=== PATIENT | female | born 1950 | race Caucasian/White ===

== ENCOUNTER → 2017-10-06 | Day surgery (SDC) | payer OTHER, MEDICARE ==
[2017-09-30 07:11] VITALS: Ht 165.1 cm; Wt 58.2 kg
[~2017-10-06] VITALS: Ht 165.1 cm; Wt 58.2 kg
[~2017-10-06] MED LIST: 500ML BSS 0.3ML EPI 1:1000PF IRRIG ONE; ACETAMINOPHEN 325 MG TAB PO PRN; AMVISC PLUS 0.8ML SYRINGE INT OCU ONE; ATROPINE SULFATE 0.1 MG/ML 5ML SYR IV PRN; AcetaZOLAMIDE 250 MG TAB PO SCH; BETAXOLOL HCL 0.25% OP SUSP PER DROP CHARGE OPR SCH; BRIMONIDINE TART 0.2% OP SOLN PER DROP CHARGE ONE; BSS FLUSH ONE; CALC600T9 PO; CHOL200010 PO; CLIN300C2 PO; ENDOCOAT 0.85ML SYRINGE INT OCU ONE; EpHEDrine SULFATE INJ 50 MG/ML AMP IV PRN; EpINEphrine INJ 1MG/ML AMP 1 MG/ML AMP ONE; LACTATED RINGER'S 1000ML 500 ML IV SCH; LIDOCAINE 4% OP SOLN DROP CHARGE ONE; LIDOCAINE 4% OP SOLN DROP CHARGE OPR SCH; LIDOCAINE HCL 1% MPF 2 ML VIAL ONE; MIDAZOLAM HCL 1 MG/ML 2ML VIAL ONE; MIX: 4ML BSS 1ML EPI 1:1000 PF INSTIL ONE; MOXIFLOXACIN OPH SOLN PER DROP CHARGE ONE; MULT-506 PO; POVIDONE-IODINE OP SOLN 30 ML BTL ONE; PRED-301 PO; PROPARACAINE 0.5% OP SOLN PER DROP CHARGE OPR SCH; TOBRAMYCIN/DEXAMETHASONE OPH OINT PER APPLN CHARGE ONE
--- NOTE | 2017-10-06 07:07 | History & Physical Bridge - [place] ---
H&P Re-Evaluation Bridge Note: I have examined the patient, reviewed the History & Physical and in the interval since the performance of the History & Physical I have noted the following changes of clinical significance: No changes noted
[2017-10-06] MEDS: PHENYLEPHRINE HCL 2.5% OP SOLN PER DROP CHARGE OPR SCH ×2 (07:43→07:48)
[2017-10-06] MEDS: TROPICAMIDE 1% OP SOLN PER DROP CHARGE OPR SCH ×2 (07:44→07:49)
[2017-10-06] MEDS: CYCLOPENTOLATE HCL 1% OP SOLN PER DROP CHARGE OPR SCH ×2 (07:45→07:50)
[2017-10-06] MEDS: MOXIFLOXACIN OPH SOLN PER DROP CHARGE OPR SCH ×2 (07:46→07:56)
--- NOTE | 2017-10-06 08:22 | [facility] Operative Report ---
Operative Report Date of Service October 06, 2017. Operative Report 1. PREOPERATIVE DIAGNOSIS: Senile Posterior Subcapsular Cataract, right eye. 2. POSTOPERATIVE DIAGNOSIS: Senile Posterior Subcapsular Cataract, right eye. 3. PROCEDURE: Phacoemulsification of right cataract with posterior chamber lens implant, type Bausch [employer] Lomb, model MI60L, power +23.5 diopters. ANESTHESIA: Local standby. SURGEON: Dr. Carlos. COMPLICATIONS: None. OPERATING TIME: 10 minutes. 4. OPERATION AND FINDINGS: DESCRIPTION OF PROCEDURE: The right pupil was dilated. The anesthetic was administered using a topical technique. The right eye was prepped and draped. A speculum was placed. A clear corneal incision was formed. The chamber was filled with Amvisc Plus and Endocoat. Epinephrine solution was used. A paracentesis was placed. A capsulorrhexis was performed. The nucleus was hydrodissected. The lens was removed with phacoemulsification. Time was 2.73 seconds. The aspiration unit was used to remove the cortex. The capsule was filled with Amvisc Plus. The lens implant was folded and placed into the capsule. A second astigmatic incision was placed at the limbus directly across from the main incision. The incisions were hydrated. The Amvisc was aspirated. The wound was secure. The chamber was deep. The pupil was round. Brimonidine, TobraDex ointment and Vigamox solution were placed. The speculum was removed. The patient was returned to the Recovery Room in stable condition. I attest to the content of the Intraoperative Record and any orders documented therein. Any exceptions are noted below. I personally scribed for Orion Carlos M.D. ([email or web address]) on 10/06/17 at 08:22. Electronically submitted by Aurora Baxter ([email or web address]).
--- NOTE | 2017-10-06 08:23 | Discharge Instructions-SurgCtr ---
Discharge Instructions Date of Service October 06, 2017. Visit Reason for Visit: Cataract Right Eye Discharge Discharge Diagnosis / Problem: lens implant right eye Discharge Goals Goal(s): Improve function Activity Recommendations Activity Limitations: resume your previous activity Lifting Limitations: no more than 10 pounds Exercise/Sports Limitations: gradually increase as tolerated May Resume Sexual Activity: when tolerated Shower/Bathe: tomorrow Driving or Machine Use: resume 1 day after discharge Anesthesia . Post Anesthesia Instructions: If you have had General Anesthesia or IV Sedation: * Do not drive today. * Resume driving when surgeon permits. * Do not make important decisions or sign legal documents today. * Call surgeon for: 1. Temperature elevations greater than 101 degrees F. 2. Uncontrollable pain. 3. Excessive bleeding. 4. Persistent nausea and vomiting. 5. Medication intolerance (nausea, vomiting or rash). * For nausea and vomiting use only clear liquids such as: tea, soda, bouillon until nausea subsides, then gradually increase diet as tolerated. * If you have any concerns or questions, call your surgeon's office. If physician is unavailable and it is an emergency, call 911 or go to the nearest emergency room. . Instructions / Follow-Up Instructions / Follow-Up ACTIVITY RECOMMENDATIONS: * Light activities. * Mild irritation and blurred vision are common for the first few days. * You may walk outside, read, watch television. * Redness around the white part of the eye is common. MEDICATIONS: Resume previous medications unless instructed otherwise by your surgeon. * Take white Diamox (Acetazolamide) tablet at 1 pm today. Start all eye drops at 1 pm today: * Eye drops (today and tomorrow): Prednisone - one drop in operative eye every 3 hours while awake Ofloxacin - one drop in operative eye every 3 hours while awake SPECIAL CARE INSTRUCTIONS: * Tape plastic shield over eye to sleep at night. Call your doctor at with any concerns or problems. FOLLOW UP VISIT: Follow-up with Dr Carlos at [facility] as scheduled. Diet Recommendations Home Diet: no limitations Procedures Procedures Performed: Right Cataract Phacoemulsification With Intraocular Lens Implant Pending Studies Studies pending at discharge: no Medical Emergencies . Who to Call and When: Medical Emergencies: If at any time you feel your situation is an emergency, please call 911 immediately. . Non-Emergent Contact Non-Emergency issues call your: Chief Lock Operator Call Non-Emergent contact if: your pain is not controlled [phone] . . "Provider Documentation" section prepared by Orion Carlos. .
[2017-10-06 08:31] VITALS: TEMP 36
[2017-10-06 08:52] VITALS: BP 145/85; PULSE 58; O2SAT 96
--- NOTE | 2017-10-06 09:04 | Anesthesia Progress Nt - [facility] ---
Anesthesia Post Op Note Date & Time October 06, 2017 at 09:04 Vital Signs Pain Intensity: 0 Vital Signs Past 12 Hours Date Time Temp Pulse Resp B/P (MAP) Pulse Ox O2 Delivery O2 Flow Rate FiO2 10/06/17 08:52 58 18 145/85 (105) 96 Room Air 10/06/17 08:31 36.0 51 18 137/78 (97) 97 Room Air 10/06/17 07:27 36.4 56 16 131/77 (95) 97 Room Air Notes Mental Status: alert / awake / arousable, participated in evaluation Pt Amnestic to Procedure: Yes Nausea / Vomiting: adequately controlled Pain: adequately controlled Airway Patency, RR, SpO2: stable & adequate BP & HR: stable & adequate Hydration State: stable & adequate Anesthetic Complications: no major complications apparent
== END | disposition home or self-care (01) ==
LOC: X.SURG 07:11
PROVIDERS: ATTEND Specialist
DX: H26.8 Other specified cataract (principal); Z88.0 Allergy status to penicillin; M19.90 Unspecified osteoarthritis, unspecified site; F17.200 Nicotine dependence, unspecified, uncomplicated

== ENCOUNTER → 2017-10-20 | Day surgery (SDC) | payer OTHER, MEDICARE ==
[2017-10-18 09:42] VITALS: Ht 165.1 cm; Wt 58.2 kg
[~2017-10-20] VITALS: Ht 165.1 cm; Wt 58.2 kg
[~2017-10-20] MED LIST changes: +BETAXOLOL HCL 0.25% OP SUSP PER DROP CHARGE OPL SCH; -BETAXOLOL HCL 0.25% OP SUSP PER DROP CHARGE OPR SCH; +LIDOCAINE 4% OP SOLN DROP CHARGE OPL SCH; -LIDOCAINE 4% OP SOLN DROP CHARGE OPR SCH; +PROPARACAINE 0.5% OP SOLN PER DROP CHARGE OPL SCH; -PROPARACAINE 0.5% OP SOLN PER DROP CHARGE OPR SCH
[2017-10-20] MEDS: PHENYLEPHRINE HCL 2.5% OP SOLN PER DROP CHARGE OPL SCH ×2 (09:06→09:11)
[2017-10-20] MEDS: TROPICAMIDE 1% OP SOLN PER DROP CHARGE OPL SCH ×2 (09:07→09:12)
[2017-10-20] MEDS: CYCLOPENTOLATE HCL 1% OP SOLN PER DROP CHARGE OPL SCH ×2 (09:08→09:13)
[2017-10-20] MEDS: MOXIFLOXACIN OPH SOLN PER DROP CHARGE OPL SCH ×2 (09:09→09:19)
--- NOTE | 2017-10-20 09:59 | [facility] Operative Report ---
Operative Report Date of Service October 20, 2017. Operative Report 1. PREOPERATIVE DIAGNOSIS: Senile Posterior Subcapsular Cataract, left eye. 2. POSTOPERATIVE DIAGNOSIS: Senile Posterior Subcapsular Cataract, left eye. 3. PROCEDURE: Phacoemulsification of left cataract with posterior chamber lens implant, type Bausch [employer] Lomb, model MI60L, power +23.5 diopters. ANESTHESIA: Local standby. SURGEON: Dr. Carlos. COMPLICATIONS: None. OPERATING TIME: 10 minutes. 4. OPERATION AND FINDINGS: DESCRIPTION OF PROCEDURE: The left pupil was dilated. The anesthetic was administered using a topical technique. The left eye was prepped and draped. A speculum was placed. A clear corneal incision was formed. The chamber was filled with Amvisc Plus and Endocoat. Epinephrine solution was used. A paracentesis was placed. A capsulorrhexis was performed. The nucleus was hydrodissected. The lens was removed with phacoemulsification. Time was 1.62 seconds. The aspiration unit was used to remove the cortex. The capsule was filled with Amvisc Plus. The lens implant was folded and placed into the capsule. The incision was hydrated. The Amvisc was aspirated. The wound was secure. The chamber was deep. The pupil was round. Brimonidine, TobraDex ointment and Vigamox solution were placed. The speculum was removed. The patient was returned to the Recovery Room in stable condition. I attest to the content of the Intraoperative Record and any orders documented therein. Any exceptions are noted below. The scribe's documentation has been prepared in my presence, under my direction and personally reviewed by me in its entirety. I confirm that the note above accurately reflects all work, treatment, procedures, and medical decision making performed by me. I personally scribed for Orion Carlos M.D. ([email or web address]) on 10/20/17 at 09:59. Electronically submitted by Aurora NELSON).
--- NOTE | 2017-10-20 10:00 | Discharge Instructions-SurgCtr ---
Discharge Instructions Date of Service October 20, 2017. Visit Reason for Visit: Cataract Left Eye Discharge Discharge Diagnosis / Problem: lens implant left eye Discharge Goals Goal(s): Improve function Activity Recommendations Activity Limitations: resume your previous activity Lifting Limitations: no more than 10 pounds Exercise/Sports Limitations: gradually increase as tolerated May Resume Sexual Activity: when tolerated Shower/Bathe: tomorrow Driving or Machine Use: resume 1 day after discharge Anesthesia . Post Anesthesia Instructions: If you have had General Anesthesia or IV Sedation: * Do not drive today. * Resume driving when surgeon permits. * Do not make important decisions or sign legal documents today. * Call surgeon for: 1. Temperature elevations greater than 101 degrees F. 2. Uncontrollable pain. 3. Excessive bleeding. 4. Persistent nausea and vomiting. 5. Medication intolerance (nausea, vomiting or rash). * For nausea and vomiting use only clear liquids such as: tea, soda, bouillon until nausea subsides, then gradually increase diet as tolerated. * If you have any concerns or questions, call your surgeon's office. If physician is unavailable and it is an emergency, call 911 or go to the nearest emergency room. . Instructions / Follow-Up Instructions / Follow-Up ACTIVITY RECOMMENDATIONS: * Light activities. * Mild irritation and blurred vision are common for the first few days. * You may walk outside, read, watch television. * Redness around the white part of the eye is common. MEDICATIONS: Resume previous medications unless instructed otherwise by your surgeon. * Take white Diamox (Acetazolamide) tablet at 1 pm today. Start all eye drops at 1 pm today: * Eye drops (today and tomorrow): Durezol - one drop in operative eye every 3 hours while awake Ofloxacin - one drop in operative eye every 3 hours while awake SPECIAL CARE INSTRUCTIONS: * Tape plastic shield over eye to sleep at night. Call your doctor at with any concerns or problems. FOLLOW UP VISIT: Follow-up with Dr Carlos at [place] office as scheduled. Diet Recommendations Home Diet: no limitations Procedures Procedures Performed: Left Cataract Phacoemulsification With Intraocular Lens Implant Pending Studies Studies pending at discharge: no Medical Emergencies . Who to Call and When: Medical Emergencies: If at any time you feel your situation is an emergency, please call 911 immediately. . Non-Emergent Contact Non-Emergency issues call your: Social Media Intern Call Non-Emergent contact if: your pain is not controlled [phone] . . "Provider Documentation" section prepared by Orion Carlos. .
[2017-10-20 10:03] VITALS: TEMP 37
--- NOTE | 2017-10-20 10:28 | Anesthesiology Progress Note ---
Anesthesia Post Op Note Date & Time October 20, 2017 at 10:28 Vital Signs Pain Intensity: 0 Vital Signs Past 12 Hours Date Time Temp Pulse Resp B/P (MAP) Pulse Ox O2 Delivery O2 Flow Rate FiO2 10/20/17 10:03 37 60 16 134/71 (92) 95 Room Air 10/20/17 08:52 36.6 54 18 129/77 (94) 97 Room Air Notes Mental Status: alert / awake / arousable, participated in evaluation Nausea / Vomiting: adequately controlled Pain: adequately controlled Airway Patency, RR, SpO2: stable & adequate BP & HR: stable & adequate Hydration State: stable & adequate Anesthetic Complications: no major complications apparent
[2017-10-20 10:36] VITALS: BP 157/70; PULSE 58; O2SAT 96
== END | disposition home or self-care (01) ==
LOC: X.SURG 08:18
PROVIDERS: ATTEND Specialist
DX: H25.042 Posterior subcapsular polar age-related cataract, left eye (principal); I51.9 Heart disease, unspecified; F17.200 Nicotine dependence, unspecified, uncomplicated; Z88.0 Allergy status to penicillin

== ENCOUNTER 2018-12-07 09:09 | Inpatient (IN) ==
--- NOTE | 2018-11-22 08:49 | PAT Medication Instructions ---
Medication Instructions Date of Service November 22, 2018 Home Medications Ca-D3-mag ek-ozvl-jmq-martha-bor [Calcium 600-D3 Plus] 1 tab PO QAM cholecalciferol (vitamin D3) [Vitamin D3] 2,000 unit PO QAM clindamycin HCl 600 mg PO DIRECTED PRN multivitamin 1 tab PO QAM prednisone 1 mg PO QAM Continue as directed clindamycin HCl 600 mg PO DIRECTED PRN (if needed) prednisone 1 mg PO QAM DO NOT take the morning of surgery Ca-D3-mag ru-tqfc-xva-martha-bor [Calcium 600-D3 Plus] 1 tab PO QAM cholecalciferol (vitamin D3) [Vitamin D3] 2,000 unit PO QAM multivitamin 1 tab PO QAM Other Notes If you have any questions please call us at [phone] or [phone] or [phone] or [phone]
--- NOTE | 2018-11-22 11:15 | Anesthesiology Consultation ---
Date of Service November 22, 2018 Assessment & Plan (1) Encounter for pre-operative examination: - PCP: 11/24/18: EKG noting U-waves reviewed-- recommendation for patient to be further evaluated by cardio regarding this (nothing further recommended from their perspective). Patient is medically cleared pending cardiology evaluation, and cortisol am." Cortisol level done 11/26/18 WNL. Cardio preop evaluation done 11/30/18. - Cardio: 11/30/18: "acceptable risk to proceed with upcoming surgery without any additional CV testing or intervention." Preop EKG noting u-waves reviewed (nothing further recommended from their perspective). Chart Review Chart Review: Acceptable Risk for Surgery and Patient seen in Pre Admission Testing Teaching & Discussion Pre-Anesthesia Teaching/Discussion Notes: Instructed NPO after midnight before surgery,except medications with 15 cc of water. Medication instructions provided according to the PAT guidelines. History Surgery Operation Date: 12/07/18 11:55 Proposed Procedures p Left Reverse Total Shoulder Arthroplasty - Rigoberto Mtz MD Height/Weight Height: 5 ft 4 in Weight: 51 kg Allergies Allergy/AdvReac Type Severity Reaction Status Date / Time Penicillins Allergy Unknown A CHILD Verified 11/14/18 11:12 Medications Home Medications Medication Instructions Recorded Confirmed Last Taken Ca-D3-mag ey-zevn-mqa-martha-bor 1 tab PO QAM 11/14/18 11/14/18 Unknown [Calcium 600-D3 Plus] cholecalciferol (vitamin D3) 2,000 unit PO QAM 11/14/18 11/14/18 Unknown [Vitamin D3] clindamycin HCl 600 mg PO DIRECTED PRN 11/14/18 11/14/18 Unknown multivitamin 1 tab PO QAM 11/14/18 11/14/18 Unknown prednisone 1 mg PO QAM 11/14/18 11/14/18 Unknown Past Medical History Medical History Temporal arteritis 8 YEARS AGO; PATIENT STATES ESR LEVEL INCREASES EVERY TIME THEY TRY TO TAPER OFF PREDNISONE SO ASSISTED PREDISONE 5MG DAILY Exercise / Class Metabolic Activity II 4-5 Yardwork/Stairs/Walk up hill Past Surgical History Surgical History History of tonsillectomy and adenoidectomy Hx of cataract extraction RIGHT/LEFT Hx of section X2 Hx of eye surgery RIGHT/LEFT EYE MUSCLE/EYELID SURGERY Status post ectopic X2 Past Anesthesia History No Hx of Anesthesia Complications and No Family Hx of Anesthesia Complications History of PONV No Hx of PONV and No Hx of Motion Sickness Social History Smoking Status: Former smoker Do You Dip or Chew Tobacco: No Smoking End Date: QUIT 2015 Hx Alcohol Use: Yes alcohol intake frequency: holidays/special occasions only Hx Substance Use: No Review of Systems Patient denies chest pain, shortness of breath, dyspnea on exertion, cough, wheezing, palpitations. Physical Exam Vital Signs VITALS BP 160/80; manual recheck on right: 122/76 (typically 120-140 range systolic; patient anxious/in pain at PAT visit) P 59 TEMP 98.7 SP02 95%RA RESP 18 PHYSICAL Full neck and c-spine range of motion. Full TMJ range of motion. TMD 3 finger breaths Mallampati Score 1 Dentition: fixed bridge upper front, missing molar Lungs: clear throughout to auscultation Cardiac: regular rate and rhythm, no murmurs noted Spine: normal Carotid arteries: negative bruit Extremities: no edema Testing Laboratory Results 11/22/18 11:44 11/22/18 12:21 PT 9.9 Seconds (9.0-12.0) 11/22/18 11:44 INR 1.0 (0.9-1.1) 11/22/18 11:44 APTT 26.5 Seconds (21.0-31.0) 11/22/18 11:44 Hemoglobin A1c 5.5 % (4.5-5.6) 11/22/18 11:44 Urine Color Dark Yellow 11/22/18 11:44 Urine Appearance Clear (Clear) 11/22/18 11:44 Urine pH 6.0 (4.5-7.5) 11/22/18 11:44 Ur Specific Dexter 1.023 (1.000-1.030) 11/22/18 11:44 Urine Protein Negative (Negative) 11/22/18 11:44 Urine Glucose (UA) Negative (Negative) 11/22/18 11:44 Urine Ketones Trace (Negative) H 11/22/18 11:44 Urine Nitrite Negative (Negative) 11/22/18 11:44 Ur Leukocyte Esterase Trace (Negative) H 11/22/18 11:44 Urine WBC (Auto) 1-5 /hpf (0-5) 11/22/18 11:44 Urine RBC (Auto) 5-10 /hpf (0-4) H 11/22/18 11:44 U Hyaline Cast (Auto) 5-10 /lpf (0-5) H 11/22/18 11:44 U Epithel Cells (Auto) 10-20 /lpf (0-5) H 11/22/18 11:44 Urine Bacteria (Auto) Negative (Negative) 11/22/18 11:44 Blood Type O Negative 11/22/18 11:44 Antibody Screen NEGATIVE 11/22/18 11:44 11/26/18 Cortisol: 14.6 (WNL) Electrocardiogram Date: 11/22/18 SB at 53bpm. U-waves present; r/o electrolyte imbalance. "No significant change" compared to 1993 EKG. Chest X-Ray Date: 11/22/18 Findings: + NAD Echocardiogram Date: 11/30/18 LVEF 60-64%. No RWMA. Mild AV sclerosis. Mild TR. Borderline concentric wall thickness increased.
--- NOTE | 2018-11-22 12:23 | XRay Report ---
XR chest Pre-admission PA/Lat CLINICAL HISTORY: Preoperative chest COMPARISON STUDY: No previous studies for comparison. FINDINGS: The cardiac and mediastinal contours are normal. There is no evidence of focal pulmonary co nsolidation. There is no evidence of failure. No pleural effusions are visualized.[ IMPRESSION: No active disease in the chest. Electronically signed by: Edmund Cordero M.D. 11/22/2018 12:21 PM
[2018-11-22 12:43] LABS: Basophils # (auto) 0.05 K/uL (0-0.2); Basophils % (auto) 0.5 %; Eosinophils # (auto) 0.05 K/uL (0-0.5); Eosinophils % (auto) 0.5 %; Hematocrit (blood only) 41.2 % (37-47); Hemoglobin 13.8 g/dL (12.0-16.0); Immature Granulocytes # (auto) 0.03 K/uL (0.00-0.02); Immature Granulocytes % (auto) 0.3 %; Lymphocytes # (auto) 1.39 K/uL (1.2-3.4); Lymphocytes % (auto) 14.4 %; Mean Corpuscular Hgb Conc 33.5 g/dL (32-36); Mean Corpuscular Volume 102.7 fL (80-100); Mean Platelet Volume 9.5 fL (7.4-10.4); Monocytes # (auto) 0.53 K/uL (0.11-0.59); Monocytes % (auto) 5.5 %; Neutrophils # (auto) 7.63 K/uL (1.4-6.5); Neutrophils % (auto) 78.8 %; Platelet Count 381 K/uL (130-400); RDW Coefficient of Variation 12.9 % (11.5-14.5); RDW Standard Deviation 48.4 fL (36.4-46.3); Red Blood Count 4.01 M/uL (4.2-5.4); White Blood Count 9.68 K/uL (4.8-10.8)
[2018-11-22 12:57] LABS: Estimated Average Glucose 111 mg/dl; Hemoglobin A1C 5.5 % (4.5-5.6)
[2018-11-22 12:59] LABS: Partial Thromboplastin Time 26.5 Seconds (21.0-31.0); Prothrombin Time 9.9 Seconds (9.0-12.0)
[2018-11-22 13:04] LABS: Appearance Urine Clear (Clear); Bacteria Urine Automated Negative (Negative); Bilirubin Urine Negative (Negative); Blood Urine Negative (Negative); Color Urine Dark Yellow; Glucose Urine UA Negative (Negative); Ketones Urine Trace (Negative); Leukocyte Esterase Urine Trace (Negative); Nitrite Urine Negative (Negative); Protein Urine Negative (Negative); Specific Gravity Urine 1.023 (1.000-1.030); Urobilinogen Urine Negative (Negative)
[2018-11-22 14:51] LABS: Albumin Level 3.7 gm/dl (3.4-5.0); BUN Creatinine Ratio 13.7 (10-20); Calcium 10.7 mg/dl (8.5-10.1); Creatinine Clr Calc Pharmacy 70.7 ml/min; Est GFR (African American) 108.3; Est GFR (Non-African American) 93.5; Potassium 3.7 mmol/L (3.5-5.1)
--- NOTE | 2018-12-06 17:32 | History and Physical Report ---
DATE OF ADMISSION: 12/07/2018 CHIEF COMPLAINT: Chronic left shoulder pain and weakness. HISTORY OF PRESENT ILLNESS: This is a 67-year-old female patient of Dr. Gill complaining of chronic left shoulder pain and weakness, longstanding, now progressively getting worse over the past 8 years. She has failed conservative treatment including intraarticular injections, anti-inflammatories and physical therapy. The patient has been diagnosed with a left shoulder rotator cuff arthropathy and has agreed to proceed with a left reverse total shoulder arthroplasty. PAST MEDICAL HISTORY: Anemia, osteoarthritis. SOCIAL HISTORY: Nonsmoker, occasional drinker. PAST SURGICAL HISTORY: Tonsillectomy, x2, ectopic x2, cataracts bilaterally and left blepharoplasty. REVIEW OF SYSTEMS: Chronic left shoulder pain and weakness. Otherwise, denies any shortness of breath, chest pain, nausea, vomiting or any other joint complaints. FAMILY HISTORY: Noncontributory. MEDICATIONS: Calcium 500 plus D daily, multivitamin daily, prednisone 10 mg daily, Clindamycin 150 mg daily prior to the dentist appointment due to her history of surgery. ALLERGIES: PENICILLIN. PHYSICAL EXAMINATION: GENERAL: Well-developed, well-nourished 67-year-old female patient of Dr. Gill. She is alert and oriented x3 and pleasant. HEENT: Normocephalic, atraumatic. Extraocular motions are intact. Pupils are equal and reactive to light. HEART: Regular rate and rhythm, no murmurs. LUNGS: Clear. ABDOMEN: Soft, nontender, bowel sounds present. EXTREMITIES: Left shoulder reveals full range of motion with pain and crepitation. She has 3+/5 strength globally. NEUROLOGIC: Neurovascularly, she is intact in her left upper extremity. DIAGNOSES: Left shoulder rotator cuff arthropathy and arthritis, anemia. PLAN: The patient was advised of her diagnosis. Indications, risks, benefits, postop course have all been reviewed. The patient wished to proceed with a left reversed total shoulder arthroplasty. Necessary consent forms, preoperative testing and clearances will be obtained.
[~2018-12-07 09:09] MED LIST changes: -500ML BSS 0.3ML EPI 1:1000PF IRRIG ONE; -ACETAMINOPHEN 325 MG TAB PO PRN; +ACETAMINOPHEN 500 MG TAB PO SCH; -AMVISC PLUS 0.8ML SYRINGE INT OCU ONE; -ATROPINE SULFATE 0.1 MG/ML 5ML SYR IV PRN; -AcetaZOLAMIDE 250 MG TAB PO SCH; -BETAXOLOL HCL 0.25% OP SUSP PER DROP CHARGE OPL SCH; -BRIMONIDINE TART 0.2% OP SOLN PER DROP CHARGE ONE; -BSS FLUSH ONE; -CALC600T9 PO; -CHOL200010 PO; -CLIN300C2 PO; +CeleBREX 200 MG CAP PO SCH; +DEXAMETHASONE SOD INJ 4 MG/ML VIAL ONE; -ENDOCOAT 0.85ML SYRINGE INT OCU ONE; -EpHEDrine SULFATE INJ 50 MG/ML AMP IV PRN; -EpINEphrine INJ 1MG/ML AMP 1 MG/ML AMP ONE; +FAMOTIDINE 20 MG TAB PO SCH; +GABAPENTIN 300 MG CAP PO SCH; -LACTATED RINGER'S 1000ML 500 ML IV SCH; -LIDOCAINE 4% OP SOLN DROP CHARGE ONE; -LIDOCAINE 4% OP SOLN DROP CHARGE OPL SCH; -LIDOCAINE HCL 1% MPF 2 ML VIAL ONE; +LR 15ML/HR IV SCH; +METOCLOPRAMIDE HCL 10 MG TABLET PO SCH; -MIDAZOLAM HCL 1 MG/ML 2ML VIAL ONE; -MIX: 4ML BSS 1ML EPI 1:1000 PF INSTIL ONE; -MOXIFLOXACIN OPH SOLN PER DROP CHARGE ONE; -MULT-506 PO; -POVIDONE-IODINE OP SOLN 30 ML BTL ONE; -PRED-301 PO; -PROPARACAINE 0.5% OP SOLN PER DROP CHARGE OPL SCH; +ROPIVACAINE 0.5% 5 MG/ML 30 ML VIAL ONE; -TOBRAMYCIN/DEXAMETHASONE OPH OINT PER APPLN CHARGE ONE; +dexAMETHasone 4 MG TAB PO SCH
[2018-12-07] MEDS ORDERED: ROCURONIUM BROMIDE 10 MG/ML 5 ML VIAL ONE (09:41)
[2018-12-07] MEDS ORDERED: DEXAMETHASONE SOD INJ 4 MG/ML VIAL ONE (09:41)
[2018-12-07] MEDS ORDERED: ONDANSETRON INJ 2 MG/ML 2 ML VIAL ONE (09:41)
[2018-12-07] MEDS ORDERED: PROPOFOL IV EMULSION 10 MG/ML 20 ML VIAL IV ONE (09:41)
[2018-12-07] MEDS ORDERED: fentaNYL citrate 100 MCG/2 ML VIAL ONE (09:41)
[2018-12-07] MEDS ORDERED: LIDOCAINE HCL 2% 2 ML VIAL/AMP(20MG/ML) INFIL ONE (09:41)
[2018-12-07] MEDS ORDERED: MIDAZOLAM HCL 1 MG/ML 2ML VIAL ONE (09:42)
[2018-12-07] MEDS ORDERED: KETAMINE HCL INJ 50 MG/ML 10 ML VIAL ONE (09:42)
[2018-12-07] MEDS ORDERED: VANCOMYCIN HCL 750 MG in SODIUM CHLORIDE 0.9% 250 ML IV SCH ×2 (09:45→19:00)
--- NOTE | 2018-12-07 10:08 | History & Physical Bridge Note ---
Date of Service December 07, 2018 History & Physical Bridge Note I have examined the patient, reviewed the History & Physical and in the interval since the performance of the History & Physical I have noted the following changes of clinical significance: no changes noted
[2018-12-07] MEDS ORDERED: BACITRACIN INJ 50,000 UNIT VIAL ONE (10:44)
[2018-12-07] MEDS ORDERED: HYDROmorphone INJ 2 MG/ML SYR/VIAL IV PRN (10:53)
[2018-12-07] MEDS ORDERED: fentaNYL citrate 100 MCG/2 ML VIAL IV PRN (10:53)
[2018-12-07] MEDS ORDERED: ATROPINE SULFATE 0.1 MG/ML 10ML SYR IV PRN (10:53)
[2018-12-07] MEDS ORDERED: ePHEDrine sulfate 50 MG/ML AMP IV PRN (10:53)
[2018-12-07] MEDS ORDERED: LIDOCAINE HCL 2% MPF (LOCAL) 5 ML VIAL INFIL ONE (11:34)
[2018-12-07] MEDS ORDERED: PHENYLEPHRINE 100MCG/ML 5ML SYR ONE (12:17)
[2018-12-07] MEDS ORDERED: ePHEDrine sulfate 50 MG/ML SYR ONE (12:17)
--- NOTE | 2018-12-07 14:27 | Post Operative Brief Note ---
Immediate Post Op Note v1 Date of Surgery December 07, 2018 Pre & Post Diagnosis Operation Date: 12/07/18 11:55 Pre-Op Diagnosis: Left Shoulder Rotator Cuff Arthropathy, irreparable rotator cuff tear, anterior dislocation biceps tendon Post-Op Diagnosis: Same Procedure Operation Date: 12/07/18 11:55 Actual Procedures p Left Reverse Total Shoulder Arthroplasty(Left), biceps tenodesis- Rigoberto Mtz MD Surgeon Rigoberto Mtz MD Credit Representative Bharathi DURAND Estimated Blood Loss 40 Findings Consistent with Post-Op Diagnosis Specimens Humeral head Drains Hemovac Drain Anesthesia Type General Regional Complications none Disposition Accompanied Patient To Recovery: No Disposition: Recovery Room Overlapping Procedure I was present for: the critical portions of procedure. Back up surgeon: was not required during procedure.
--- NOTE | 2018-12-07 14:44 | XRay Report ---
XR shoulder LT min 2V routine CLINICAL HISTORY: Post shoulder surgery COMPARISON STUDY: None. FINDINGS: Status post a left reverse total shoulder arthroplasty. The hardware appears intact. No fra cture or dislocation. Skin danie and surgical drains are in place. The alignment is anatomic. IMPRESSION: Status post left reverse total shoulder arthroplasty. No evidence for hardware complicat ion. Electronically signed by: Erasto Pineda M.D. 12/07/2018 2:43 PM
--- NOTE | 2018-12-07 14:52 | Anesthesiology Progress Note ---
Date of Service December 07, 2018 Anesthesia Post Procedure Vital Signs Vital Signs: Temp Pulse Pulse Resp BP Pulse Ox 12/07/18 14:45 80 19 151/83 H 97 12/07/18 14:35 88 16 138/77 98 12/07/18 14:25 87 26 H 146/79 H 99 12/07/18 14:16 97.7 F 94 H 18 142/80 H 98 12/07/18 09:47 97.9 F 58 L 20 134/63 99 Pain Intensity Left Shoulder: Pain Intensity: 7 Transfer of Care Handoff Completed per policy Notes Mental Status: alert / awake / arousable and participated in evaluation Patient Amnestic to Procedure: Yes Nausea / Vomiting: adequately controlled Pain: adequately controlled Airway Patency, RR, SpO2: stable & adequate BP & HR: stable & adequate Hydration State: stable & adequate Anesthetic Complications: no major complications apparent and Pt Satisfied with anesthetic care
[2018-12-07] MEDS ORDERED: HYDROmorphone INJ 0.5 MG/0.5 ML SYR IV PRN (15:41)
[2018-12-07] MEDS ORDERED: MAGNESIUM HYDROXIDE SUSP 30 ML UDC PO PRN (15:41)
[2018-12-07] MEDS ORDERED: VANCOMYCIN CONSULT ACTIVE PRN (15:41)
[2018-12-07] MEDS ORDERED: ONDANSETRON INJ 2 MG/ML 2 ML VIAL IV PRN (15:41)
[2018-12-07] MEDS ORDERED: BISACODYL 10 MG SUPP PR PRN (15:41)
[2018-12-07] MEDS ORDERED: ALUMINUM/MAGNESIUM SUSP 30 ML UDC PO PRN (15:41)
[2018-12-07] MEDS ORDERED: NALOXONE HCL 0.4 MG/1 ML VIAL/CARP IV PRN (15:41)
[2018-12-07] MEDS ORDERED: SODIUM CHLORIDE 0.9% 1000ML 1,000 ML IV SCH (15:41)
[2018-12-07] MEDS ORDERED: COUGH DROP (SUGAR FREE) LOZ 24 LOZ/1 BOX BUCCAL PRN (16:02)
[2018-12-07] MEDS ORDERED: COUGH DROP (SUGAR FREE) LOZ 24 LOZ/1 BOX BUCCAL ONE (16:05)
--- NOTE | 2018-12-07 16:16 | Consultation ---
Date of Consultation December 07, 2018 Assessment & Plan (1) S/P arthroscopy of left shoulder: Post op day# 0 S/P Left Reverse Total Shoulder Arthroplasty, biceps tenodesis by Dr Dr Mtz Post op pt doing well -pain management per ortho -wound management per ortho -PT/OT as appropriate -DVT prophylaxis per ortho -incentive spirometry -monitor H&H for acute blood loss anemia (2) Temporal arteritis: (3) PMR (polymyalgia rheumatica): Hx temporal arteritis approx 7 years ago, confirmed by biopsy. Still on prednisone 5mg daily Received dexamethasone intraoperatively -Continue prednisone DVT Prophylaxis -SCDs per ortho Disposition per primary team Pt was seen and care coordinated with Dr Butler. See addendum Pt will be followed by Dr Walsh starting 12/08/18 Thank you for this consultation. We will follow the patient with you during their hospital stay. You can reach a [facility] via pager @ [phone]. Supervising Physician Co-Signing Physician Notes Patient is a 67-year-old female with history of polymyalgia rheumatica, temporal arthritis on chronic prednisone was seen and examined postop after having a left shoulder arthroplasty by Dr. Mtz. Left shoulder pain at surgical site is controlled. Complains of mild numbness and tingling in the fingers. Denies any chest pain, shortness of breath, dizziness. On exam patient is thin, frail, no apparent distress, normocephalic atraumatic, lungs are clear to auscultation, S1-S2, no murmur, abdomen soft nontender, grossly no focal neurological deficits, left shoulder pain sling,+ drain, no pedal edema. Postop medical management status post left shoulder arthroplasty. Monitor for postop anemia. Bowel regimen to prevent constipation. DVT prophylaxis as per primary team. Agree with continuing prednisone for temporal arteritis. I personally reviewed the record. Patient is interviewed and examined at bedside. Patient's care is coordinated with Juhi Craig PA-C. Please refer to the documentation above for details of patient's presentation and for discussion of other issues. History of Present Illness Reason for Consultation: Post op medical management Attending Physician: Rigoberto Mtz MD History of Present Illness Pt is 67 y/o F with PMH PMR, temporal arteritis on chronic prednisone seen in medical consultation for post op medical management s/p left shoulder arthroplasty. Post op pt states is feeling well. Left shoulder/arm/hand still with numbness. Is starting to be able to move left fingers. Denies fever/chills, diaphoresis, N/V/D/C, [place], dizziness, syncope, vision changes, neck pain, CP, SOB, orthopnea, palpitations, cough, sore throat, choking, otalgia, rhinorrhea, abdominal pain, paresthesias, extremity edema, rashes, urinary symptoms. Allergies Allergy/AdvReac Type Severity Reaction Status Date / Time Penicillins Allergy Unknown A CHILD Verified 12/07/18 09:42 Home Medications Home Medications Medication Instructions Recorded Confirmed Type Ca-D3-mag mn-tgrw-hzu-martha-bor 1 tab PO QAM 11/14/18 12/07/18 History [Calcium 600-D3 Plus] cholecalciferol (vitamin D3) 2,000 unit PO QAM 11/14/18 12/07/18 History [Vitamin D3] clindamycin HCl 600 mg PO DIRECTED PRN 11/14/18 12/07/18 History multivitamin 1 tab PO QAM 11/14/18 12/07/18 History prednisone 1 mg PO QAM 11/14/18 12/07/18 History Patient History Medical History PMR (polymyalgia rheumatica) (Chronic) Temporal arteritis (Chronic) 8 YEARS AGO; PATIENT STATES ESR LEVEL INCREASES EVERY TIME THEY TRY TO TAPER OFF PREDNISONE SO LONG TERM PREDISONE 5MG DAILY Surgical History History of tonsillectomy and adenoidectomy (Chronic) Hx of section (Chronic) X2 Hx of cataract extraction (Chronic) RIGHT/LEFT Hx of eye surgery (Chronic) RIGHT/LEFT EYE MUSCLE/EYELID SURGERY Status post ectopic (Chronic) X2 Family History Other Cancer Kidney disease Social History Preferred Language: Somali Communication Ability: Effective Beliefs That Will Affect Care: None Current Living Situation: Alone Feels Safe at Home: Yes Safety Concerns: Feels Safe At This Time Smoking Status: Former smoker Do You Dip or Chew Tobacco: No Smoking End Date: QUIT 2015 Second Hand Exposure: No Hx Alcohol Use: Yes Hx Substance Use: No Review of Systems Review of Systems: All systems reviewed & are unremarkable except as noted in HPI & below Physical Exam Physical Exam: General: no distress, moderately developed, moderately nourished Head: normocephalic, atraumatic Eyes: PERRL, EOM's intact, conjunctiva non-injected, anicteric ENT: normal inspection external ears, nose, mucous membranes moist Neck: supple, trachea midline Lungs: clear, no respiratory distress, no wheezing/rhonchi/rales CV: RRR, no murmur, no pretibial edema Abd: normal BS, soft, non-tender Ext: Left arm in shoulder immobilizer, distal pulses intact, sensation to light touch and cool temperature intact, limited ROM of fingers. Remaining extremities with normal appearance Neuro: A&O x 3, no focal deficits noted, normal affect Skin: warm, dry Results & Data Vital Signs (Past 12 Hours) Vital Signs Temp Pulse Pulse Resp BP Pulse Ox 12/07/18 15:58 36.5 C 68 18 144/72 H 100 12/07/18 14:55 36.7 C 83 22 150/80 H 98 12/07/18 14:45 80 19 151/83 H 97 12/07/18 14:35 88 16 138/77 98 12/07/18 14:25 87 26 H 146/79 H 99 12/07/18 14:16 36.5 C 94 H 18 142/80 H 98 12/07/18 09:47 36.6 C 58 L 20 134/63 99
[2018-12-07] MEDS: DOCUSATE SODIUM 100 MG CAP PO SCH (20:55)
[2018-12-07] MEDS ORDERED: SENNA 8.6 MG TAB PO SCH (21:00)
[2018-12-07] MEDS: ACETAMINOPHEN 500 MG TAB PO SCH (22:28)
[2018-12-08] MEDS: OXYCODONE HCL IR 5 MG TAB (IMMEDIATE RELEASE) PO PRN ×3 (01:39→11:12)
[2018-12-08] MEDS: ACETAMINOPHEN 500 MG TAB PO SCH ×2 (05:43→13:03)
[2018-12-08 05:50] LABS: Basophils # (auto) 0.01 K/uL (0-0.2); Basophils % (auto) 0.1 %; Eosinophils # (auto) 0.01 K/uL (0-0.5); Eosinophils % (auto) 0.1 %; Hematocrit (blood only) 35.1 % (37-47); Hemoglobin 11.6 g/dL (12.0-16.0); Immature Granulocytes # (auto) 0.03 K/uL (0.00-0.02); Immature Granulocytes % (auto) 0.2 %; Lymphocytes # (auto) 1.62 K/uL (1.2-3.4); Lymphocytes % (auto) 12.6 %; Mean Corpuscular Volume 102.3 fL (80-100); Mean Platelet Volume 9.3 fL (7.4-10.4); Monocytes # (auto) 0.93 K/uL (0.11-0.59); Monocytes % (auto) 7.2 %; Neutrophils # (auto) 10.25 K/uL (1.4-6.5); Neutrophils % (auto) 79.8 %; Platelet Count 295 K/uL (130-400); RDW Coefficient of Variation 13.2 % (11.5-14.5); RDW Standard Deviation 49.5 fL (36.4-46.3); Red Blood Count 3.43 M/uL (4.2-5.4); White Blood Count 12.85 K/uL (4.8-10.8)
[2018-12-08 06:13] LABS: BUN Creatinine Ratio 18.3 (10-20); Calcium 9.4 mg/dl (8.5-10.1); Creatinine Clr Calc Pharmacy 74.1 ml/min; Est GFR (African American) 110.1
--- NOTE | 2018-12-08 08:17 | Anesthesiology Progress Note ---
Date of Service December 08, 2018 Anesthesia Post Procedure Vital Signs Vital Signs: Temp Pulse Pulse Resp BP Pulse Ox 12/08/18 07:59 36.7 C 56 L 18 154/72 H 97 12/08/18 03:48 36.6 C 62 18 136/75 97 12/07/18 23:58 130/71 12/07/18 23:19 36.6 C 68 18 149/75 H 96 12/07/18 19:05 36.7 C 64 17 111/68 96 12/07/18 18:29 36.9 C 79 16 107/63 95 12/07/18 17:20 36.4 C L 73 16 116/66 94 12/07/18 16:27 36.6 C 71 17 126/58 L 99 12/07/18 15:58 36.5 C 68 18 144/72 H 100 12/07/18 15:20 36.7 C 78 16 130/72 97 12/07/18 14:55 36.7 C 83 22 150/80 H 98 12/07/18 14:45 80 19 151/83 H 97 12/07/18 14:35 88 16 138/77 98 12/07/18 14:25 87 26 H 146/79 H 99 12/07/18 14:16 36.5 C 94 H 18 142/80 H 98 12/07/18 09:47 36.6 C 58 L 20 134/63 99 Notes Mental Status: alert / awake / arousable and participated in evaluation Nausea / Vomiting: adequately controlled Pain: adequately controlled Airway Patency, RR, SpO2: stable & adequate BP & HR: stable & adequate Hydration State: stable & adequate Neuraxial Anesthesia: sensory block resolved
[2018-12-08] MEDS: DOCUSATE SODIUM 100 MG CAP PO SCH (08:50)
[2018-12-08] MEDS ORDERED: CALCIUM 600MG + VIT D 400 IU TAB PO SCH (09:00)
[2018-12-08] MEDS ORDERED: CHOLECALCIFEROL 1,000 UNITS TAB PO SCH (09:00)
[2018-12-08] MEDS ORDERED: ASPIRIN 81 MG ECTAB PO SCH (09:00)
[2018-12-08] MEDS ORDERED: MULTIVITAMIN TAB PO SCH (09:00)
[2018-12-08] MEDS ORDERED: predniSONE 1 MG TAB PO SCH (09:00)
--- NOTE | 2018-12-08 11:16 | Hospitalist Progress Note ---
Date of Service December 08, 2018 Assessment & Plan (1) S/P arthroscopy of left shoulder: S/P Left Reverse Total Shoulder Arthroplasty, biceps tenodesis by Dr Dr Mtz - POD # 1 -Pain, Wound mx per ortho -PT/OT per primary team -H & H - stable (2) Temporal arteritis: (3) PMR (polymyalgia rheumatica): Hx temporal arteritis approx 7 years ago, confirmed by biopsy. Still on prednisone 5mg daily Received dexamethasone intraoperatively -Continue prednisone as at home DVT Prophylaxis -SCDs per ortho Disposition per primary team You can reach a [facility] via pager @ [phone]. Subjective Patient is doing well. Pain is tolerable with pain medications. No fever, chills, nausea, vomiting, shortness of breath, chest pain. Physical Exam Physical Exam: GENERAL- AAOX3, No acute distress LUNGS- Air entry bilaterally equal. No rales, rhonchi, crackles, wheezes heard. HEART- Regular rate and rhythm. No murmurs ABDOMEN- Soft, non tender, non distended, Bowel sounds heard. EXTREMITIES- S/P Left shoulder arthroscopy/left reverse total shoulder arthroplasty with drain + Results & Data Vital Signs (Past 12 Hours) Vital Signs Temp Pulse Resp BP Pulse Ox 12/08/18 07:59 36.7 C 56 L 18 154/72 H 97 12/08/18 03:48 36.6 C 62 18 136/75 97 12/07/18 23:58 130/71 12/07/18 23:19 36.6 C 68 18 149/75 H 96
[2018-12-08 12:27] VITALS: BP 155/81; PULSE 50; TEMP 97.9; O2SAT 96
--- NOTE | 2018-12-08 12:37 | Orthopedic Progress Note ---
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 Subjective POD #1, Doing well, denies sob, cp, n/v, pain controlled well. Physical Exam Physical Exam: Left shoulder dressings c/d/i, no drainage, gingers mobile, sling in tact, A&Ox3. Results & Data Vital Signs (Past 12 Hours) Vital Signs Temp Pulse Resp BP Pulse Ox 12/08/18 12:26 36.6 C 50 L 18 155/81 H 96 12/08/18 07:59 36.7 C 56 L 18 154/72 H 97 12/08/18 03:48 36.6 C 62 18 136/75 97
--- NOTE | 2018-12-08 12:37 | Operative Report ---
Post Operative Report Pre & Post Diagnosis Operation Date: 12/07/18 11:55 Pre-Op Diagnosis: Left Shoulder Rotator Cuff Arthropathy, irreparable rotator cuff tear, anterior dislocation biceps tendon Post-Op Diagnosis: Same Procedure Operation Date: 12/07/18 11:55 Actual Procedures p Left Reverse Total Shoulder Arthroplasty(Left), biceps tenodesis- Rigoberto Mtz MD Surgeon Rigoberto Mtz MD Obiee Architect Bharathi DURAND Estimated Blood Loss 40 Findings Consistent with Post-Op Diagnosis Specimens Humeral head Drains 2 Hemovac Anesthesia Type General Regional Complications none Disposition Accompanied Patient To Recovery: No Disposition: Recovery Room Indications 67-year-old female with chronic weakness pain failed conservative management with x-rays and MRI demonstrating massive retracted rotator cuff tear with anterior dislocation of biceps tendon with tear involving subscapularis supraspinatus and infraspinatus. She is chronic pain weakness dysfunction. Description of Procedure The patient was taken to the operating room and anesthetized under regional block and general anesthetic. The patient was positioned on the operating table in a 30 beachchair position with a towel roll under the medial border of the left scapula. The arm was draped free to be able to manipulate the shoulder as needed. The left upper extremity was prepped and draped in usual sterile fashion. Exam demonstrated subacromial crepitation with good passive range of motion. Patient was very thin individual. An anterior deltopectoral approach was performed. A longitudinal incision was made in the deltopectoral interval. The skin was incised sharply. Subcutaneous flaps were elevated off the fascia. The cephalic vein was dissected out and retracted lateral with the deltoid. The clavipectoral fascia was divided at the lateral margin of the conjoined tendon and extended up to the CA ligament. The following findings were noted: Marked tenosynovitis of the biceps tendon with anterior dislocated biceps under the subscapularis tendon which had about two thirds of the subscapularis tendon torn with a small portion only about 12-13 mm wide remaining. The tear extended through supraspinatus and into the infraspinatus with teres minor remaining there was a large subacromial bursa fluid collection and chronic subacromial bursitis. The upper centimeter of the pectoralis was released for inferior exposure. the biceps tendon was tenodesed to the pectoralis tendon with #2 FiberWire. The proximal biceps was resected. The subscapularis tendon was taken down off the lesser tuberosity using a subperiosteal dissection. A #1 Vicryl traction suture was placed into the free end of the subscapularis tendon and capsule. The subscapular muscle fibers were split longitudinally at the level of the circumflex vessels. The circumflex vessels were identified and tied off with silk ties and divided laterally. A Kitner elevator was used to free up the inferior fibers of the subscapularis off of the capsule. The axillary nerve was identified with a tug test and protected with a blunt Keyonna retractor between the nerve and the capsule. The dissection was performed along the neck of the humerus as the arm is gradually actually rotated exposing the humeral head. Retractors were readjusted and a Isaacs elevator was used to assist in releasing the capsule of the neck of the humerus. The capsule was divided with Rosado scissors down to the glenoid released off the anterior glenoid and the rotator interval was released to meet the capsular release and a 360 release of the subscapularis was accomplished. A Fukuda retractor was placed into the joint retracting the humeral head posterior. Glenoid findings demonstrated mild arthritic changes with a small size glenoid. The labrum and biceps tendon was resected. an anterior-inferior and posterior inferior capsular release were performed with electrocautery and a Isaacs elevator on bone with the axillary nerve protected inferiorly by the retractor. Attention was then taken to the humeral preparation. The cutting guide was placed into the humeral head. It was positioned at 20 of retroversion. Oscillating saw was used to resect the humeral head giving the cut above the level of the posterior rotator cuff insertion site. The humerus was then prepared for the stem. I used the ascend flex stem from [employer]. The sizing broaches were used followed by trial broaches up to a size 2 B long which had the appropriate fit and fill. The appropriate sized cut protector was placed. The humerus was then retracted posterior to the glenoid. The glenoid was sized for a 25 baseplate. The guide for the baseplate was positioned in a 10 inferior tilt and the central drill hole was made. The reamer for the 25 baseplate was used. The central drill was widened for the peg. The 25 baseplate was impacted into position. The base plate was transfixed with superior and inferior locking screws and anterior and posterior compression screws with stable fixation. The fan reamer was used for the 36 millimeter glenoid sphere. After irrigation the 36 standard glenoid sphere was impacted onto the baseplate and the screw was tightened. Attention was taken back to the humerus. The cut protector was removed and the high offset +0 humeral tray trial was assembled to the trial stem rotated appropriately to get bony coverage and then screwed in position. A trial reduction was performed. A +6 trial insert demonstrated good stability and no shuck. The trials were removed. 3 drill holes are made into the harder bone in the bicipital groove area and 3 #5 FiberWire sutures were placed transosseously. The canal was irrigated with antibiotic solution with ba citracin. The final component was assembled. The final component was +0 high offset assembled to 2 B long stem ascend flex PTC. This was then impacted into the humerus with a tight press-fit. It was reduced to the glenoid sphere. Stability was verified. Subscapularis was repaired with the #5 FiberWire sutures using Osvaldo-Paul suture technique. Lateral row soft tissue repair was performed with #2 FiberWire [id number] sutures. The pectoralis was repaired with #2 FiberWire [id number] sutures reinforcing the biceps tendon tenodesis. The arm was taken through a range of motion which demonstrated 90 degrees of abduction 130 degrees forward elevation external rotation to 75 degrees. The implant was stable through the range of motion tested. The wound was copiously irrigated. 2 Hemovac drains were placed. The deltopectoral interval was closed with [id number] #1 Vicryl sutures. The subcutaneous tissues were closed with 2-0 Vicryl sutures. The skin was closed with danie. Sterile dressings were applied and a shoulder immobilizer. Bharathi DURAND my physician assistant professor of english assisted in the procedure to the entire procedure including patient positioning arm positioning prepping and draping soft tissue retraction instrument management suture management and performed the subcutaneous and skin closure and will participate in the postoperative care of the patient. I attest to the content of the Intraoperative Record and any orders documented therein. Any exceptions are noted below.
--- NOTE | 2018-12-09 13:12 | Discharge Summary ---
Date of Service December 09, 2018 Admission HPI Per Admitting Provider This is a 67-year-old female patient of Dr. Gill complaining of chronic left shoulder pain and weakness, longstanding, now progressively getting worse over the past 8 years. She has failed conservative treatment including intraarticular injections, anti-inflammatories and physical therapy. The patient has been diagnosed with a left shoulder rotator cuff arthropathy and has agreed to proceed with a left reverse total shoulder arthroplasty. Admission Exam Per Admitting Provider GENERAL: Well-developed, well-nourished 67-year-old female patient of Dr. Gill. She is alert and oriented x3 and pleasant. HEENT: Normocephalic, atraumatic. Extraocular motions are intact. Pupils are equal and reactive to light. HEART: Regular rate and rhythm, no murmurs. LUNGS: Clear. ABDOMEN: Soft, nontender, bowel sounds present. EXTREMITIES: Left shoulder reveals full range of motion with pain and crepitation. She has 3+/5 strength globally. NEUROLOGIC: Neurovascularly, she is intact in her left upper extremity. Principal Diagnosis Left Shoulder Rotator Cuff Arthropathy, irreparable rotator cuff tear, anterior dislocation biceps tendon Discharge Data Allergies Allergy/AdvReac Type Severity Reaction Status Date / Time Penicillins Allergy Unknown A CHILD Verified 12/07/18 09:42 Consultations 11/30/18 15:38 Consult Hospitalist Routine 12/07/18 15:41 Consult Case Management - Discharge Planning Routine Procedures Performed Operation Date: 12/07/18 11:55 Actual Procedures p Left Reverse Total Shoulder Arthroplasty(Left) - Rigoberto Mtz MD Ordered Studies 12/07/18 05:00 US - OR guided needle placemen Routine Discharge Plan Discharge Items Patient Disposition: Home - Self-Care Reason For Visit: Left Shoulder Rotator Cuff Arthropathy Discharge Diagnosis: same Discharge Goals: Decrease discomfort and Improve function Activity: Per 'Additional Instructions' section Non-emergency contact: Surgeon Call non-emergency contact if: your pain is not controlled, your temperature is above 101, your wound has increased redness and your wound has increased drainage Follow-up/Referrals: Skyla Jang, [Primary Care Provider] - Diet: Regular Addtl Provider Instructions: ACTIVITY RECOMMENDATIONS: SELF CARE INSTRUCTIONS AFTER TOTAL SHOULDER ARTHROPLASTY REVERSE A. You may do daily exercises as taught in physical therapy while in hospital. No lifting with the operative arm. B. You are to wear your sling/immobilizer at all times EXCEPT when performing your daily exercises and for hygiene purposes. C. You may perform dry, daily dressing changes. Please keep your incision covered. You may shower 48 hours after surgery. Do not apply soap or any ointment/ lotions directly over incision. Do not soak incision in bath tub/swimming pool. D. You may use ice as needed to operative shoulder. SPECIAL CARE INSTRUCTIONS: VERY IMPORTANT TO READ AND REVIEW A. There are a few signs you need to watch for after you are home. Call [facility] at [phone] if you experience any of the followin. Increased severe shoulder pain. Some pain is expected especially when you exercise. 2. Increased swelling in you shoulder or arm; pain or swelling in either upper extremity. 3. Any fluid drainage from the incision. 4. Shortness of breath or chest pain. B. Please call [facility] at [phone] if you have any questions or concerns about your operation or recovery. C. Call your physician if: 1. Temperature is greater than 101 degrees (F). 2. Pain is not relieved by prescribed pain medications. 3. Increase drainage or redness from incision. 4. Unanswered questions or concerns. FOLLOW UP VISIT: Please call [facility] at [phone] to schedule a follow up appointment with Dr. Mtz or his PA in 12-14 days from your surgery date. Prescriptions: New acetaminophen [Tylenol Extra Strength] 500 mg Tablet 1,000 mg PO Q8 30 Days Qty: 180 RF: 0 aspirin [Ecotrin Low Strength] 81 mg Tablet,Delayed Release (Dr/Ec) 81 mg PO QAM 30 Days Qty: 30 RF: 0 oxycodone 5 mg Tablet 5 mg PO Q4H PRN (Reason: pain) Qty: 30 RF: 0 Continued multivitamin Tablet 1 tab PO QAM RF: 0 prednisone 5 mg Tablet 1 mg PO QAM RF: 0 cholecalciferol (vitamin D3) [Vitamin D3] 2,000 unit Tablet 2,000 unit PO QAM RF: 0 Ca-D3-mag zb-mdmp-jnb-martha-bor [Calcium 600-D3 Plus] 600 mg calcium- 800 unit- 50 mg Tablet 1 tab PO QAM RF: 0 clindamycin HCl 300 mg Capsule 600 mg PO DIRECTED PRN (Reason: PRE DENTAL) RF: 0 Stand-Alone Forms: [employer], [facility] [employer]/Other Patient Handouts: Surgery Prevent DVT After Discharge Orders: Discharge Order (Routine); Ordered 12/08/18 Ordered By: Emanuel Mckeon Admission Data Admit Date/Time: 12/07/18 14:26 Attending Provider: Rigoberto Mtz Admit Provider: Rigoberto Mtz Primary Care Provider: Skyla Jang Other Providers: Claude Hidalgo Service: Surgical Services Other Interventions: Discharge Summary Assessment (RN) Last Done: 12/08/18 12:47 DC Date/Time DO NOT enter until pt leaves facility: 12/08/18 14:18
--- NOTE | 2018-12-09 15:22 | Discharge Summary ---
DISCHARGE DIAGNOSES: Left shoulder rotator cuff arthropathy, irreparable rotator cuff tear, anterior dislocation of biceps tendon. SECONDARY DIAGNOSES: Anemia, osteoarthritis. CONSULTS: Juhi Craig PA-C/Neville Butler MD. PAST MEDICAL HISTORY: Temporal arteritis and polymyalgia rheumatica. PROCEDURES: Left reverse total shoulder arthroplasty with biceps tenodesis by Dr. Mtz on 12/07/2018. BRIEF HISTORY: As dictated in the history and physical. HOSPITAL SUMMARY: The patient was admitted on the above-noted date and had the above-noted surgery performed, which she tolerated well. On her first postoperative day, she was doing well and had no complaints. Pain was controlled. She denies shortness of breath, chest pain, nausea, vomiting. Left shoulder dressings were clean, dry and intact. No drainage. Fingers were mobile. Sling was intact. She was alert and oriented x3. Vital signs were stable. She was afebrile. She was doing limited PT and OT, HEP only and no formal PT. Discharge plans were for her to be discharged to home. She continued to remain stable and was discharged to home on 12/08/2018. For further review, please see chart. LABORATORY AND X-RAY DATA: As per chart. DISCHARGE INSTRUCTIONS: The patient was discharged to home in satisfactory condition on 12/08/2018. Diet: Regular. Activity: Follow reverse total shoulder arthroplasty instructions as noted and special care instructions as noted as well. Follow Dr. Mtz in 2 weeks. The patient is to call for appointment if one has not made for you. DISCHARGE MEDICATIONS: Acetaminophen 1000 mg p.o. q. 8 hours, aspirin 81 mg p.o. q.a.m., oxycodone 5 mg p.o. q. 4 hours p.r.n. Resume home meds as listed.
== END 2018-12-08 14:18 | disposition home or self-care (01) | DRG 483 ==
LOC: ASU 09:09 → 3E 14:26